=== PATIENT | female | born 1945 | race Caucasian/White ===

== ENCOUNTER 2023-03-07 13:53 | Outpatient (OUT) | payer MEDICARE, OTHER, SELFPAY ==
--- NOTE | 2023-03-07 13:59 | US_ITS ---
The [address] [address] Patient Name: JAYNE RODRÍGUEZ MRN: [id number] date: 1945 Sex: F Assigned Patient Location: [place] Current Patient Location: [place] Accession/Order Number: [id number] Exam Date: 03/07/2023 14:20 Report Date: 03/07/2023 19:15 At the request of: LISSET URIAS Procedure: US thyroid EXAM: US thyroid HISTORY: Thyroid Nodule E04.1 . Follow-up study. COMPARISON: 02/16/2022 TECHNIQUE: Multiple sonographic images of the thyroid gland were obtained, supplemented with Doppler. FINDINGS: The right lobe measures 4.1 x 0.8 x 0.7 cm. Heterogeneous echoes are noted throughout. In the inferior aspect there is a solid hypoechoic nodule measuring 0.7 x 0.4 x 0.5 cm. Additional much smaller nodules are noted. The left lobe measures 4.2 x 0.8 x 1.0 cm. Heterogeneous echoes are noted throughout. In the superior aspect there is a solid hypoechoic nodule measuring 0.7 x 0.5 x 0.5 cm. In the mid aspect there is a solid hypoechoic nodule measuring 0.9 x 0.5 x 0.7 cm. Additional much smaller nodules are noted. The isthmus measures 1 mm in thickness. There is no evidence of a focal mass or abnormal fluid collection surrounding the gland. US/US thyroid IMPRESSION: The thyroid gland is not enlarged. The largest nodules are identified above, and each of these are identified nodules are considered TI RADS 4. The thyroid gland has not changed significantly. Biopsy is not recommended at this time. Follow-up study as clinically indicated. Electronically authenticated by: SHARI PHELPS Date: 03/07/2023 19:15
== END 2023-03-07 13:54 | disposition home or self-care (01) ==
LOC: US 13:54
PROVIDERS: PCP Internal Medicine; Visit Provider Internal Medicine
DX: E04.1 Nontoxic single thyroid nodule (principal)
CPT/HCPCS: 76536

== ENCOUNTER 2023-09-16 09:46 | Outpatient (OUT) | payer MEDICARE, OTHER, SELFPAY ==
--- OUTSIDE RECORDS SUMMARY | 2023-09-16 09:48 | XMS_ITS | CCD ---
Author Organization [facility] Care Team Providers Care Wood Flour Miller Name Role Phone Monique Hutchins Attending Unavailable Ball, Waldemar Oneill Primary Care Unavailabl e BALL, DR DARLING Primary Care Unavailable PAU, AHMAD Admitting Unavailable PAU, AHMAD Attending Unavailable PAU, AHMAD Consulting Unavailable BALL, DR DARLING Admitting Unavailable BALL, DR DARLING Attending Unavailable BALL, DR DARLING Primary Care Unavailable WEST, ELIZABETH Saldivar Consulting Unavailable PAU, AHMAD Consulting Unavailable BALL, DR DARLING Primary Care Unavailable PAU, AHMAD Admitting Unavailable PAU, AHCLIFFORDD Attending Unavailable REQUEST, NONE LISTED Consulting Unavaila ble BALL, DR DARLING Primary Care Unavailable REQUEST, NONE LISTED Admitting Unavaila ble REQUEST, NONE LISTED Attending Unavaila ble Adrian, Waldemar Primary Care Unavailable Cuong, Monique Attending Unavailable Cuong, Monique Admitting Unavailable Ball, Waldemar Unavailable Allergies Allergy Classification Reported Allergen(s) Allergy Type Date of Onset Reaction(s) Facility (2 sources) Cephalosporins (Antibiotic); Translations: [Cephalosporins] Propensity to adverse reactions 07-14-19 21 Unknown Reaction [facility] (2 sources) Sulfonamides (Antibiotic); Translations: [Sulfa (Sulfonamide Antibiotics)] Propensity to adverse reactions 07-14-19 21 Redness of Skin [facility] (4 sources) bacitracin / neomycin / polymyxin b Drug Allergy 12-04-19 13 Comment:Freete xt Needs Updated. [facility] Other (4 sources) denosumab Drug Allergy Unknown [facility] Other (4 sources) Sulfacetamide Drug Allergy swelling [facility] Other (4 sources) Substance with sulfonamide structure and antibacterial mechanism of action (substance) Drug allergy 01-24-20 13 Unknown [facility] Other Medications Current Medications Medication Drug Class(es) Dates Sig (Normalized) Sig (Original) aspirin 325 mg oral tablet (5 sources) Platelet Aggregation Inhibitor, Nonsteroidal Anti-inflammatory Drug Start: 07-06-2017 Aspirin Active 325 MG PO As Directed July 06, 2017 12:00am Calcium + D 250-125 MG-UNIT (4 sources) take 1 tablet by mouth once daily at mealtime Calcium + D 250-125 MG-UNIT 1 tablet with meals Orally Daily Active calcium carbonate 1250 mg / cholecalciferol 0.01 mg oral tablet (1 source) Vitamin D Start: 07-05-2017 Calcium Carbonate-Vitamin D3 (Calcium 500 + D) 500 mg(1,250mg) -400 unit Tablet Active 1 TAB PO Twice daily July 05, 2017 12:00am dorzolamide 20 mg/ml / timolol 5 mg/ml ophthalmic solution (1 source) Carbonic Anhydrase Inhibitor, beta-Adrenergic Nacho Start: 07-17-2018 Dorzolamide-Timolo l Active 1 DROPS EYE-BOTH 1-2 TIMES DAILY July 17, 2018 12:00am levothyroxine sodium 0.075 mg oral tablet (5 sources) l-Thyroxine Start: 07-05-2017 take 75 ug by mouth once daily Levothyroxine Active 75 MCG PO Daily July 05, 2017 12:00am Start: 10-30-2013 take 1 tablet by dandre th every twenty-four hours Levothyroxine Sodium 75 MCG 1 tablet Orally Once a day Oct, Active propranolol hydrochloride 20 mg oral tablet (8 sources) beta-Adrenergic Nacho Start: 06-08-2022 take 1 tablet by mouth every eight hours Propranolol HCl 20 MG 1 tablet Orally tid May, Active Start: 07-13-2020 Propranolol Ac tive 0 .ROUTE .COMPLEX 450 90 July 13, 2020 10:21am 20 mg orally am, 10mg midday, 20mg pm Start: 07-05-2017 End: 07-13-2020 take 10 mg by mouth every six hours Propranolol Discontinued 10 MG PO Q6H 360 90 November 20, 2019 8:11am July 13, 2020 10:24am Vitamin D3 800 (4 sources) take 1 capsule by mouth once daily Vitamin D3 800 1 capsule Orally Daily Active {20 (nirmatrelvir 150 MG Oral Tablet) / 10 (ritonavir 100 MG Oral Tablet) } Pack [Paxlovid 5-Day] (4 sources) Start: 08-02-2022 take 3 tablets by mouth every twelve hours Paxlovid (300/100) 20 x 150 MG & 10 x 100MG 3 tablets Orally Twice a day for 5 day(s) Jul, Active Completed/Discontinued Medications Medication Drug Class(es) Dates Sig (Normalized) Sig (Original) Augmentin Tablets 875 MG (4 sources) Start: 04-20-2015 take 1 tablet by mouth every twelve hours Augmentin Tablets 875 MG 1 orally every 12 hours, recommend probiotics while taking antibiotics for 10 days Mar, Not-Taking Timolol (5 sources) beta-Adrenergic Nacho Start: 07-05-2017 End: 07-17-2018 take 1 drop(s) into the eye(s) twice daily Timolol Discontinued 1 DROPS OPHTHALMIC Twice daily July 05, 2017 12:00am July 17, 2018 3:29pm Timolol Hemihydr ate 1 drop into both eyes Ophthalmic Once a day Active Problems Active Problems Problem Classification Problem Date Documented Da te Episodic/Chronic Cancer of breast (10 sources) Malignant neoplasm of upper-outer quadrant of female breast; Translations: [Malignant neoplasm of upper-outer quadrant of right female breast] Onset: 07-13-2020 07-06-2017 Chronic Cancer of breast (6 sources) Personal history of malignant neoplasm of breast; Translations: [History of malignant neoplasm of breast] Onset: 07-13-2020 Episodic Cardiac dysrhythmias (4 sources) Palpitations; Translations: [Palpitations] Episodic Essential hypertension (2 sources) Hypertensive disorder; Translations: [Essential (primary) hypertension] Onset: 07-13-2020 07-06-2017 Chronic Genitourinary symptoms and ill-defined conditions (1 source) Dysuria Episodic Glaucoma (4 sources) Glaucoma; Translations: [Unspecified glaucoma] Chronic Immunizations and screening for infectious disease (4 sources) Vaccination given; Translations: [Encounter for immunization] Episodic Malaise and fatigue (4 sources) Fatigue; Translations: [Other fatigue] Episodic Nutritional deficiencies (9 sources) Vitamin D deficiency, unspecified; Translations: [Vitamin D deficiency] Onset: 09-16-2021 Chronic Other bone disease and musculoskeletal deformities (1 source) Osteopenia; Translations: [Other specified disorders of bone density and structure, unspecified site] 07-06-2017 Episodic Other bone disease and musculoskeletal deformities (4 sources) Disorder of bone; Translations: [Other specified disorders of bone density and structure, other site] Episodic Other bone disease and musculoskeletal deformities (4 sources) Bone density finding; Translations: [Other specified disorders of bone density and structure, unspecified site] Episodic Other injuries and conditions due to external causes (4 sources) History of fall; Translations: [History of falling] Episodic Other skin disorders (4 sources) Alopecia; Translations: [Nonscarring hair loss, unspecified] Episodic Systemic lupus erythematosus and connective tissue disorders (4 sources) Autoimmune disease; Translations: [Autoimmune disease, not elsewhere classified] Onset: 02-22-2016 Chronic Thyroid disorders (20 sources) Autoimmune thyroiditis; 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] Onset: 02-16-2022 Chronic Past or Other Problems Problem Classification Problem Date Documented Da te Episodic/Chronic Other connective tissue disease (4 sources) Pain in left arm; Translations: [Pain in left arm] Onset: 02-23-2017 Episodic Other non-traumatic joint disorders (4 sources) Shoulder joint pain; Translations: [Pain in left shoulder] Onset: 02-23-2017 Episodic Residual codes; unclassified (4 sources) Requires influenza virus vaccination; Translations: [Need for prophylactic vaccination and inoculation, Influenza] Onset: 01-23-2018 Episodic Unclassified (4 sources) Need for prophylactic vaccination with tetanus toxoid alone; Translations: [Need for prophylactic vaccination with tetanus toxoid alone] Onset: 02-23-2017 Results Test Name Value Interpretation Reference Range Facility Urinalysis - DIPSTICKon 02-22 Appearance (U) clear [facility] Other Bilirubin Ql (U) Negative MPV Other Color (U) yellow [facility] Other Glucose Ql (U) Negative [facility] Other Hemoglobin Ql (U) Negative Prim[facility] Other Ketones Ql (U) Negative [facility] Other Leukocyte esterase Test strip Ql (U) Negative [facility] Other Nitrite Ql (U) Negative [facility] Other pH (U) 5 [pH] [facility] Other Protein Ql (U) Negative [facility] Other Specific gravity (U) [Rel density] 1.000 [facility] Other Urobilinogen (U) [Mass/Vol] Negative [facility] Other Urinalysis - DIPSTICK [facility] Other CBC AUTO DIFFon 02-16-2022 BASO # 0.1 103/ul Normal 0.0-0.1 [facility] Comment on above: Performed By: #### D ATCBC #### [facility] [address] [place] [address] Dr. Juan Alberto Lr Basophils/100 WBC (Bld) 0.9 % Normal 0.2-2.0 [facility] Comment on above: Performed By: #### D ATCBC #### [facility] [address] [place] [address] Dr. Juan Alberto Lr EO # 0.1 103/ul Normal 0.0-0.7 [facility] Comment on above: Performed By: #### D ATCBC #### [facility] [address] [place] [address] Dr. Juan Alberto Lr Eosinophils/100 WBC (Bld) 1.6 % Normal 0.9-7.0 [facility] Comment on above: Performed By: #### D ATCBC #### [facility] [address] [place] [address] Dr. Juan Alberto Lr Erythrocyte distribution width (RBC) [Ratio] 12.1 % Normal 11.0-15.0 [facility] Comment on above: Performed By: #### D ATCBC #### [facility] [address] [place] [address] Dr. Juan Alberto Lr Hematocrit (Bld) [Volume fraction] 37.3 % Normal 36.0-48.0 [facility] Comment on above: Performed By: #### D ATCBC #### [facility] [address] [address] [address] Juan Alberto Lr Hemoglobin (Bld) [Mass/Vol] 12.5 g/dL Normal 12.0-16.0 [facility] Comment on above: Performed By: #### D ATCBC #### [facility] [address] [address] [address] Juan Alberto Lr IG # 0.02 10e3/ul Normal 0.00-0.03 [facility] Comment on above: Performed By: #### D ATCBC #### [facility] [address] [address] [address] Juan Alberto Lr IG % 0.3 % Normal 0.0-0.5 [facility] Comment on above: Performed By: #### D ATCBC #### [facility] [address] [address] [address] Juan Alberto Lr LYMPH # 1.7 103/ul Normal 1.2-3.8 [facility] Comment on above: Performed By: #### D ATCBC #### [facility] [address] [address] [address] Juan Alberto Lr Lymphocytes/100 WBC (Bld) 28.8 % Normal 20.5-60.0 [facility] Comment on above: Performed By: #### D ATCBC #### [facility] [address] [address] [address] Juan Alberto Lr MCH (RBC) [Entitic mass] 30.2 pg Normal 26.7-34.0 [facility] Comment on above: Performed By: #### D ATCBC #### [facility] [address] [address] [address] Juan Alberto Lr MCHC (RBC) [Mass/Vol] 33.5 g/dL Normal 29.9-35.2 [facility] Comment on above: Performed By: #### D ATCBC #### [facility] [address] [address] [address] Juan Alberto Lr MCV (RBC) [Entitic vol] 90.1 fL Normal 81.0-99.0 [facility] Comment on above: Performed By: #### D ATCBC #### [facility] [address] [place] [address] Dr. Juan Alberto Lr MONO # 0.5 103/ul Normal 0.3-0.8 [facility] Comment on above: Performed By: #### D ATCBC #### [facility] [address] [place] [address] Dr. Juan Alberto Lr Monocytes/100 WBC (Bld) 7.8 % Normal 1.7-12.0 [facility] Comment on above: Performed By: #### D ATCBC #### [facility] [address] [place] [address] Dr. Juan Alberto Lr NEUT # 3.5 103/ul Normal 1.4-6.5 [facility] Comment on above: Performed By: #### D ATCBC #### [facility] [address] [place] [address] Dr. Juan Alberto Lr Neutrophils/100 WBC (Bld) 60.6 % Normal 43.0-75.0 [facility] Comment on above: Performed By: #### D ATCBC #### [facility] [address] [place] [address] Dr. Juan Alberto Lr Platelet mean volume (Bld) [Entitic vol] 10.7 fL Normal 9.5-13.5 [facility] Comment on above: Performed By: #### D ATCBC #### [facility] [address] [place] [address] Dr. Juan Alberto Lr PLT 252 103/ul Normal 150-450 [facility] Comment on above: Performed By: #### D ATCBC #### [facility] [address] [place] [address] Dr. Juan Alberto Lr RBC 4.14 106/ul Critically low 4.20-5.40 [facility] Comment on above: Performed By: #### D ATCBC #### [facility] [address] [place] [address] Dr. Juan Alberto Lr WBC 5.8 103/ul Normal 4.0-11.0 [facility] Comment on above: Performed By: #### D ATCBC #### [facility] [address] [address] [address] Juan Alberto Lr PARISH- BMP WITH LIPIDon 2021 Anion gap [Moles/Vol] 11.4 mmol/L Normal [facility] Comment on above: Performed By: #### D ATBMP #### [facility] [address] [address] [address] Juan Alberto Lr Calcium [Mass/Vol] 9.0 mg/dL Normal 8.5-10.1 [facility] Comment on above: Performed By: #### D ATBMP #### [facility] [address] [address] [address] Juan Alberto Lr Chloride [Moles/Vol] 102 mmol/L Normal 98-107 [facility] Comment on above: Performed By: #### D ATBMP #### [facility] [address] [address] [address] Juan Alberto Lr Cholesterol [Mass/Vol] 207 mg/dL Critically high <=200 [facility] Comment on above: Performed By: #### D ATBMP #### [facility] [address] [address] [address] Juan Alberto Lr Cholesterol in HDL [Mass/Vol] 53 mg/dL Normal 40-60 [facility] Comment on above: Performed By: #### D ATBMP #### [facility] [address] [address] [address] Juan Alberto Lr Cholesterol in LDL [Mass/Vol] 138.0 mg/dL Normal [facility] Comment on above: Performed By: #### D ATBMP #### [facility] [address] [address] [address] Juan Alberto Lr CO2 [Moles/Vol] 28.9 mmol/L Normal 21.0-32.0 [facility] Comment on above: Performed By: #### D ATBMP #### [facility] [address] [address] [address] Juan Alberto Lr Creatinine [Mass/Vol] 0.65 mg/dL Normal 0.55-1.02 [facility] Comment on above: Performed By: #### D ATBMP #### [facility] [address] [address] [address] Juan Alberto Lr EGFR-AF THAI >60 Normal >=60 [facility] Comment on above: Performed By: #### D ATBMP #### [facility] [address] [address] [address] Juan Alberto Lr EGFR-NON AF THAI >60 Normal >=60 [facility] Comment on above: Performed By: #### D ATBMP #### [facility] [address] [address] [address] Juan Alberto Lr Glucose [Mass/Vol] 93 mg/dL Normal 74-106 [facility] Comment on above: Performed By: #### D ATBMP #### [facility] [address] [address] [address] Juan Alberto Lr HDL NORMAL > or = 60 mg/dl - LOW CARDIOVASCULAR RISK <40 mg/dl - HIGH CARDIOVASCULAR RISK Normal [facility] Comment on above: Performed By: #### D ATBMP #### [facility] [address] [address] [address] Juan Alberto Lr LDL CALC NORMAL SEE BELOW Normal [facility] Comment on above: Result Comment: <100 mg/dl OPTIMAL 100 - 129 mg/dl NEAR OR ABOVE OPTIMAL 130 - 159 mg/dl BORDERLINE HIGH 160 - 189 mg/dl HIGH >190 mg/dl VERY HIGH Performed By: #### D ATBMP #### [facility] [address] [address] [address] Juan Alberto Lr Potassium [Moles/Vol] 4.3 mmol/L Normal 3.5-5.1 [facility] Comment on above: Performed By: #### D ATBMP #### [facility] [address] [address] [address] Juan Alberto Lr Sodium [Moles/Vol] 138 mmol/L Normal 136-145 [facility] Comment on above: Performed By: #### D ATBMP #### [facility] [address] [address] [address] Juan Alberto Lr Triglyceride [Mass/Vol] 80 mg/dL Normal <=150 [facility] Comment on above: Performed By: #### D ATBMP #### [facility] [address] [address] [address] Juan Alberto Lr Urea nitrogen [Mass/Vol] 20.0 mg/dL Critically high 7.0-18.0 [facility] Comment on above: Performed By: #### D ATBMP #### [facility] [address] [address] [address] Juan Alberto Lr Urea nitrogen/Creatinin e [Mass ratio] 30.8 mg/mg Normal [facility] Comment on above: Performed By: #### D ATBMP #### [facility] [address] [place] [address] Dr. Juan Alberto Lr VLDL CALC 16.0 mg/dL Normal [facility] Comment on above: Performed By: #### D ATBMP #### [facility] [address] [place] [address] Dr. Juan Alberto Lr US THYROIDon 02-16-2022 US THYROID EXAMINATION: US THYROID HISTORY: Autoimmune thyroiditis COMPARISON: 02/15/2021 TECHNIQUE: Sonographic images of the thyroid gland were obtained. FINDINGS: The right thyroid lobe is small in size heterogeneous in echotexture measuring 3.1 x 1.1 x 0.8 cm. Single TR 4 7 mm nodule, stable. The thyroid isthmus measures 2.4 mm, no focal nodule The left thyroid lobe is small in size heterogeneous in echotexture measuring 3.8 x 0.7 x 0.9 cm. Single TR 3 7 mm nodule, stable IMPRESSION: Stable subcentimeter nodules Stable diffuse thyroid atrophy Electronically authenticated by: ELIZABETH PEREZ Date: 2022-02-16 14:34 Normal [facility] FREE T3on 09-14-2021 FREE T3 2.57 pg/mlL Normal 2.18-3.98 [facility] Comment on above: Performed By: #### T SH, FT3 #### [facility] [address] [place] [address] Dr. Juan Alberto Lr FREE T4on 09-14-2021 Free T4 [Mass/Vol] 1.43 ng/dL Normal 0.76-1.46 [facility] Comment on above: Performed By: #### V ITAD, FT4 #### [facility] [address] [place] [address] Dr. Juan Alberto Lr TSHon 09-14-2021 TSH 3.311 uIU/mL Normal 0.358-3.740 [facility] Comment on above: Performed By: #### T SH, FT3 #### [facility] [address] [place] [address] Dr. Juan Alberto Lr TSH RANGE SEE BELOW Normal [facility] Comment on above: Result Comment: <0.3 4 UIU/ml HYPERTHYROID 0.34-5.60 UIU/ml EUTHYROID >5.60 UIU/ml HYPOTHYROID Performed By: #### T SH, FT3 #### [facility] [address] [place] [address] Dr. Juan Alberto Lr VITAMIN D 25 OHon 09-14-2021 VIT D 25-OH 49.8 ng/mL Normal [facility] Comment on above: Performed By: #### V ITAD, FT4 #### [facility] [address] [place] [address] Dr. Juan Alberto Lr VIT D RANGES SEE BELOW Normal [facility] Comment on above: Result Comment: <20 ng/mL Vit D deficient 20 - <30 ng/mL Vit D insufficient 30 - 100 ng/mL Vit D sufficient >100 ng/mL Potential Toxicity Performed By: #### V ITAD, FT4 #### [facility] [address] [place] [address] Dr. Juan Alberto Lr Vital Signs Date Time Vital Sign Value Performing Clinician Facility 03-06-2023 08:30-0500 Body height 157.48 cm Waldemar Urias Other [facility] Other 03-06-2023 08:30-0500 Body mass index (BMI) [Ratio] 22.49 kg/m2 Waldemar Urias Other [facility] Other 03-06-2023 08:30-0500 Body weight 55.79 kg Waldemar Urias Other [facility] Other 03-06-2023 08:30-0500 Diastolic blood pressure 62 mm[Hg] Waldemar Urias Other [facility] Other 03-06-2023 08:30-0500 Respiratory rate 12 /min Waldemar Urias Other [facility] Other 03-06-2023 08:30-0500 Systolic blood pressure 110 mm[Hg] Waldemar Urias Other [facility] Other Encounters Encounter Date Encounter Type Care Provider Facility Start: 03-08-2023 End: 03-08-2023 ambulatory Waldemar Urias Other [facility] Other Start: 03-08-2023 Telephone encounter Waldemar [facility] Start: 03-07-2023 End: 03-07-2023 ambulatory Waldemar Urias Other [facility] Other Start: 03-07-2023 Telephone encounter Waldemar [facility] Start: 03-06-2023 End: 03-06-2023 ambulatory Waldemar Urias Other [facility] Other Start: 03-06-2023 Patient encounter procedure Waldemar Urias [facility] Start: 03-06-2023 Telephone encounter Waldemar [facility] Start: 09-07-[address] WALDEMAR URIAS Facili ty:[facility] Start: 03-04-2022 Adult health examination Waldemar Urias Other [facility] Other Start: 02-16-2022 End: 02-17-[address] OQUENDO LISTED REQUEST Facility:[facility] Start: 09-14-2021 End: 09-15-[address] WALDEMAR URIAS Facility:[facility] Start: 07-13-2020 End: 07-14-2020 ambulatory Waldemar Urias Facility:[facility] Start: 07-17-2018 Patient encounter procedure Monique Hutchins Facility:[id number] Procedures Date Procedure Procedure Detail Performing Clinician Start: 02-23-2017 Screening for malign ant neoplasm of prostate Waldemar Urias Other Depression screening Matthew Urias Other History of bilateral mastectomy S/P bilateral mastectomy Immunizations Immunization Date Immunization Notes Care Provider Fa enrike 01-07-2023 influenza, high dose seasonal, preservative-free Waldemar Urias Other [facility] Other 01-22-2022 COVID-19 Vaccine Pfi zer - Documentation Purposes Only Waldemar Urias Other [facility] Other 01-10-2022 influenza virus vaccine, split virus (incl. purified surface antigen) Waldemar Urias Other [facility] Other 08-16-2021 COVID-19 Vaccine Pfi zer - Documentation Purposes Only Waldemar Urias Other [facility] Other 01-06-2021 influenza virus vaccine, split virus (incl. purified surface antigen) Waldemar Urias Other [facility] Other 01-06-2020 influenza virus vaccine, split virus (incl. purified surface antigen) Waldemar Urias Other [facility] Other 01-25-2019 influenza virus vaccine, split virus (incl. purified surface antigen) Waldemar Urias Other [facility] Other 01-17-2019 zoster vaccine, live Matthew Urias Other [facility] Other 01-23-2018 influenza virus vaccine, split virus (incl. purified surface antigen) Waldemar Urias Other [facility] Other 02-23-2017 tetanus toxoid, redu yeimi diphtheria toxoid, and acellular pertussis vaccine, adsorbed Waldemar Urias Other [facility] Other 12-23-2016 influenza virus vaccine, split virus (incl. purified surface antigen) Waldemar Urias Other [facility] Other 01-20-2016 influenza virus vaccine, split virus (incl. purified surface antigen) Waldemar Urias Other [facility] Other 02-17-2015 pneumococcal conjuga te vaccine, 13 valent Waldemar Urias Other [facility] Other 02-14-2014 tetanus and diphther ia toxoids, adsorbed, preservative free, for adult use (5 Lf of tetanus toxoid and 2 Lf of diphtheria toxoid) Waldemar Adrian Other [facility] Other 01-22-2014 tetanus and diphther ia toxoids, adsorbed, preservative free, for adult use (5 Lf of tetanus toxoid and 2 Lf of diphtheria toxoid) Waldemar Urias Other [facility] Other 01-03-2013 tetanus and diphther ia toxoids, adsorbed, preservative free, for adult use (5 Lf of tetanus toxoid and 2 Lf of diphtheria toxoid) Waldemar Adrian Other [facility] Other 12-06-2012 pneumococcal polysaccharide vaccine, 23 valent Waldemar Urias Other [facility] Other 12-28-2011 tetanus and diphther ia toxoids, adsorbed, preservative free, for adult use (5 Lf of tetanus toxoid and 2 Lf of diphtheria toxoid) Waldemar Adrian Other [facility] Other 11-26-1986 diphtheria, tetanus toxoids and acellular pertussis vaccine, unspecified formulation Waldemar Adrian Other [facility] Other Payers Date Payer Category Payer Self-pay [id number] 2012 Unknown [id number] 1957 Medicare [id number] 1959 Self-pay [id number] 1959 Unknown [id number] 1945 Unknown [id number] 1947 Unknown [id number] 1947 Unknown [id number] [id number] 1947 Unknown [id number] 2.16.84 [id number] Unknown [id number] Unknown [id number] 2.16.84 [id number] Unknown [id number] Social History Date Type Detail Facility Tobacco smoking status NHIS Unknown if ever smoked [facility] Work Phone: Start: 1945 Sex Assigned At Female [facility] Sex Assigned At Sex Assigned At Bir th [employer] Other Evaluation note 03-07-2023 Note Date & Type Note Facility 03-07-2023 Evaluation note Encounter Date Diagnosis Assessment Notes Feb, Thyroid nodule (ICD-10 - E04.1) US: 0.7cm TR4 - 01/2021, US: 0.7cm TR4, 0.7mm TR3 - 01/2022, US: 0.7cm x 2, 0.9cm all TR4 - 02/2023 [facility] Other Evaluation note 03-06-2023 Note Date & Type Note Facility 03-06-2023 Evaluation note Encounter Date Diagnosis Assessment Notes Feb, Medicare annual wellness visit, subsequent (ICD-10 - Z00.00) Personalized health advice was given to the beneficiary including a written plan for screenings discussed and provided. Advanced care planning reviewed and/or information given as requested. Additional counseling was provided here today in regards to, [ ]. The above visit was performed by [ ], under direct supervision of [ ]. Document reviewed and amended by provider signed below. Feb, Thyroid nodule (ICD-10 - E04.1) US: 0.7cm TR4 - ,1 US: 0.7cm TR4, 0.7mm TR3 - Euthyroid per labs Recommend thyroid US due to known nodules Feb, Other specified hypothyroidism (ICD-10 - E03.8) Feb, Autoimmune thyroiditis (ICD-10 - E06.3) Clinically and chemically euthyroid. TSH yearly Feb, Hx of breast cancer (ICD-10 - Z85.3) B/L mastectomy. COntinue Propranolol and f/u w/ Oncology Feb, Dysuria (ICD-10 - R30.0) [employer] Other History general Narrative - Reported 09-22-2010 Note Date & Type Note Facility 09-22-2010 History general N arrative - Reported Type Medical History bilateral mastectomies 09/2010 Medical History hypothyroidism Medical History HX of ostopenia Surgical History BILATERAL MASTECOMY 2010 Surgical History COMPLETE HYSTRECTOMY Surgical History 2 x C SECTIONS Surgical History T&A Hospitalization History SEE ABOVE SURGERY [employer] Other Evaluation note Note Date & Type Note Facility Evaluation note No assessment information availa [facility] Work Phone: Evaluation note Note Date & Type Note Facility Evaluation note No Information [employer] Other Summary Purpose Family History No Family History Records FoundNo Family History Records FoundNo Family History Records Found Advance Directives No Advanced Directives Records FoundNo Advanced Directives Records FoundNo Advanced Directives Records Found Additional Source Comments INFORMATION SOURCE (unrecogn ized section and content) DATE CREATED AUTHOR 07/28/2018 [facility] DATE CREATED AUTHOR AUTHOR'S ORGANIZ ATION 09/07/2022 [facility] DATE CREATED AUTHOR AUTHOR'S ORGANIZ ATION 12/24/2022 [facility] Goals (unrecognized section and content) Goals may be documented in a n alternate sectionNo InformationNo InformationNo InformationNo Information REASON FOR VISIT (unrecogniz ed section and content) WELLNESSThyroid UltrasoundNo InformationThyroid US results FOR RECORDS PERTAINING TO PATIENTS WHO ARE OR HAVE BEEN ENROLLED IN A CHEMICAL DEPENDENCY/SUBSTANCEABUSE PROGRAM, SOME INFORMATION MAY BE OMITTED. This clinical summary was aggregated from multiple sources. Caution should be exercised in using it in the provision of clinical care. This summary normalizes information from multiple sources, and as a consequence, information in this document may materially change the coding, format and clinical context of patient data. In addition, data may be omitted in some cases. CLINICAL DECISIONS SHOULD BE BASED ON THE PRIMARY CLINICAL RECORDS. [employer] [facility]. provides no warranty or guarantee of the accuracy or completeness of information in this document.
[2023-09-16 12:38] LABS: Free T3 2.17 pg/mL (2.18-3.98); Thyroid Stimulating Hormone 2.622 uIU/mL (0.358-3.740)
[2023-09-19 16:00] LABS: Free T4 1.42 ng/dL (0.76-1.46)
== END 2023-09-16 09:47 | disposition home or self-care (01) ==
LOC: LAB 09:46
PROVIDERS: PCP Internal Medicine; Visit Provider Internal Medicine
DX: E06.3 Autoimmune thyroiditis (principal); E04.2 Nontoxic multinodular goiter; E55.9 Vitamin D deficiency, unspecified
CPT/HCPCS: 36415; 82306; 84439; 84443; 84481

== ENCOUNTER 2024-09-12 07:44 | Outpatient (OUT) | payer MEDICARE, OTHER, SELFPAY ==
--- OUTSIDE RECORDS SUMMARY | 2009-09-23 04:00 | XMS_ITS | Continuity of Care Document ---
Author Organization [facility] Address [address] [place] [address] Phone Care Team Providers Care Pipe Inspector Name Role Phone Blane Nieto Unavailable Unavailable Procedures Procedure Date HEP A VACCINE, ADULT IM OFFICE/OUTPATIENT VISIT, EST OFFICE/OUTPATIENT VISIT, EST HEP A VACCINE, ADULT IM Advance Directives Directive Yes / No Effective Date File Name Resuscitation Not Answered N/A N/A Life Support Not Answered N/A N/A Intubation Not Answered N/A N/A Antibiotics Not Answered N/A N/A IV Fluid Support Not Answered N/A N/A Tube Feed Not Answered N/A N/A Other Directive N/A N/A WARNING:The information contained in this section is historical and is provided for information only and does not constitute a legal document or any assurance that the information is still accurate. Please verify the information with the sanchez of the legal document before using it for clinical purposes. Encounters Encounter Description Practice Location Reason(s) For Visit Diagnoses Date Provider Providers Copied on Encounter OFFICE/OUTPATI ENT VISIT, EST [facility], [address], [place], [id number], tel:[phone] [facility] No Information Smooth CRAWFORD Blane. [address], [place], [id number], [place]. tel:[phone] Family History Family Member Type Diagnosis Age At Onset No Information Immunizations Vaccine Date Status Comments Hep A (adult) administered Source: New Im munization Record Payers Payer name Insurance type Covered democrat ID Authorjessica mike(s) Reva ONEAL [id number] Social History Type Description Quantity Date Captured Comments Alcohol Use Details Unknown Caffeine Use Details Unknown Tobacco Use Status No Information Smoking Status No Information Sex Female Chief Complaint And Reason For Visit No Information Reason For Referral Reason For Referral No Information History Of Present Illness Encounter Date Complaint History Of Prese nt Illness No Information Functional Status Date Functional Assessmen t No Information Instructions Date Instruction Additional Infor mation No Information Assessments Type Assessment Date No Information Patient Care Teams Name Effective Dates (start - stop) Status Members No Information
--- OUTSIDE RECORDS SUMMARY | 2024-09-12 07:46 | XMS_ITS | Clinical Summary ---
Author Organization [facility] Address [address] [place] [address] Care Team Providers Care Assembler Skylights Name Role Phone Waldemar Campbell DO Primary Care Provider [phone] Allergies Active Allergy Reactions Criticality Noted Date Comments Cefixime Swelling 06/12/2024 Cefpodoxime Unknown 06/12/2024 Denosumab Unknown 06/12/2024 Sulfamethoxazole Unknown 06/12/2024 Trimethoprim Unknown 06/12/2024 Medications timolol (Betimol) 0.5 % ophthalmic solution 1 drop Daily Active Multiple Vitamins-Minerals (Multivitamin Adults) tablet Take 1 tablet by mouth Daily Active Calcium Carb-Cholecalcifero l (Calcium Plus Vitamin D) 500-5 MG-MCG tablet Take 1 tablet by mouth Daily Active levothyroxine (Synthroid, Levoxyl) 75 MCG tabletIndications:A cquired hypothyroidism (CMS/HCC) TAKE 1 TABLET DAILY IN THE MORNING ON AN EMPTY STOMACH 90 tablet 3 Active Encounters Date Type Department Care Team Description 08/05/2024 Refill [facility] [address] [place] [address] aSndhya Man MD Acquired hypothyroidism (CMS/HCC) (Primary Dx) from Last 3 Months Immunizations Immunization Administration Dates Next Due Hep A, Adult 09/23/2009 Influenza, High Dose Seasona l, Preservative Free 12/23/2016,01/20/2016,01/14/2015 Influenza, High-dose Seasona l, Quadrivalent, Preservative Free 01/10/2022 Influenza, Seasonal, Quadriv alent, Adjuvanted 01/07/2023 Influenza, trivalent, adjuvanted 01/25/2019,10/0 05/2017 Novel [id number], preservative-free 03/05 TD (adult), 2 Lf tetanus tox oid, preservative free, adsorbed 02/23/2017 Zoster, Recombinant 05/21/2019,01/17/2019 Zoster, live 06/19/2008 Family History Relation Name Status Comments Brother x 1 Alive Father Mother Sister x 1 Alive Son x 2 Alive Social History Tobacco Use Types Packs/Day Years Used Date Smoking Tobacco: Never Assessed Comments Unknown Sex and Gender Information Value Date Recorded Sex Assigned at Not on file Legal Sex Female 6:46 PM EDT Gender Identity Not on file Sexual Orientation Not on file Last Filed Vital Signs Vital Sign Reading Time Taken Comments Blood Pressure 176/86 09/25/2023 8:57 AM EDT Pulse 69 09/25/2023 8:57 AM EDT Temperature - - Respiratory Rate 16 09/25/2023 8:57 AM EDT Oxygen Saturation 99% 09/25/2023 8:57 AM EDT Inhaled Oxygen Concentration - - Weight 58.1 kg (128 lb) 09/25/2023 8:57 AM EDT Height 157.5 cm (5' 2 ) 09/25/2023 8:57 AM EDT Body Mass Index 23.41 09/25/2023 8:57 AM EDT Plan of Treatment Upcoming Encounters Date Type Department Care Team (Late st Contact Info) Description 09/25/2024 9:20 AM EDT Office Visit [facility] [address] [place] [id number] Sandhya Man MD [address] [place] [address] Health Maintenance Due Date Last Done Comments Pneumococcal Vaccine: 65+ Ye ars (1 of 1 - PCV) 08/17/1997 Influenza Vaccine (Season Ended) 2024 01/07/2023, 01/10/2022, 01/25/2019, Additional history exists Insurance MEDICARE [facility] [place] [place] [address] Care Teams Assembler Skylights Relationship Specialty Start Date End Date Waldemar Campbell DO PCP - General Internal Medicine 01/10/24
--- OUTSIDE RECORDS SUMMARY | 2024-09-12 07:46 | XMS_ITS | Clinical Summary ---
Author Organization [facility] Address [address] [place] [address] Phone Care Team Providers Care Environmental Epidemiologist Name Role Phone Waldemar Campbell DO Primary Care Provider [phone] Social History Tobacco Use Types Packs/Day Years Used Date Smoking Tobacco: Never Assessed Comments Unknown Sex and Gender Information Value Date Recorded Sex Assigned at Not on file Legal Sex Female 5:49 PM EST Gender Identity Not on file Sexual Orientation Not on file Plan of Treatment Not on file Care Teams Environmental Epidemiologist Relationship Specialty Start Date End Date Waldemar Campbell DO PCP - General 10/15/10
[2024-09-12 09:06] LABS: Free T3 2.69 pg/mL (2.18-3.98); Thyroid Stimulating Hormone 3.008 uIU/mL (0.358-3.740)
[2024-09-12 11:07] LABS: Free T4 1.33 ng/dL (0.76-1.46)
== END 2024-09-12 07:45 | disposition home or self-care (01) ==
LOC: LAB 07:44
PROVIDERS: PCP Internal Medicine; Visit Provider Internal Medicine
DX: E06.3 Autoimmune thyroiditis (principal); E04.2 Nontoxic multinodular goiter; E55.9 Vitamin D deficiency, unspecified
CPT/HCPCS: 36415; 82306; 84439; 84443; 84481